=== PATIENT | female | born 1995 ===

== ENCOUNTER 2017-04-04 16:49 | Emergency (ER) | payer MEDICAID ==
[2017-04-04 17:16] VITALS: BP 127/86; PULSE 122; RESP 16; O2SAT 99
[2017-04-04 17:57] LABS: VENOUS BLOOD GAS PCO2 45 mmHg (40-60); VENOUS BLOOD PH 7.38 (7.32-7.43)
--- NOTE | 2017-04-04 18:05 | ED PDOC ---
HPI: General Adult Time Seen by Provider: 04/04/17 17:22 Chief Complaint (Nursing): Abdominal Pain History Per: Patient Additional Complaint(s): Pt. states last night she had an abrupt onset of suprapubic pain associated with non-bloody vomiting. States pain has been constant and reports no fever at home. Denies dysuria, hematuria, vaginal discharge, cough, congestion, sore throat, rash, diarrhea, headache, neck pain/stiffness, back pain. Last BM was today and was normal. Past Medical History Reviewed: Historical Data, Nursing Documentation, Vital Signs Vital Signs: Last Vital Signs Temp 100.9 F H 04/04/17 17:13 Pulse 122 H 04/04/17 17:13 Resp 16 04/04/17 17:13 BP 127/86 04/04/17 17:13 Pulse Ox 99 04/04/17 18:12 - Medical History Other PMH: PCOS - Surgical History Surgical History: No Surg Hx - Family History Family History: States: No Known Family Hx - Immunization History Hx Tetanus Toxoid Vaccination: No Hx Influenza Vaccination: No Hx Pneumococcal Vaccination: No - Home Medications Home Medications: Ambulatory Orders Medication Instructions Recorded Prednisone 20 mg PO BID #10 tablet 11/02/15 - Allergies Allergies/Adverse Reactions: Allergies Allergy/AdvReac Type Severity Reaction Status Date / Time No Known Allergies Allergy Verified 11/02/15 20:37 Review of Systems ROS Statement: Except As Marked, All Systems Reviewed And Found Negative Gastrointestinal: Positive for: Nausea, Vomiting Genitourinary Female: Positive for: Pelvic Pain Physical Exam - Reviewed Nursing Documentation Reviewed: Yes Vital Signs Reviewed: Yes - Physical Exam Appears: Positive for: Well, Non-toxic, No Acute Distress Head Exam: Positive for: ATRAUMATIC, NORMAL INSPECTION, NORMOCEPHALIC Skin: Positive for: Normal Color, Warm. Negative for: Rash Eye Exam: Positive for: EOMI, Normal appearance, PERRL ENT: Positive for: Normal ENT Inspection Neck: Positive for: Normal, Painless ROM Cardiovascular/Chest: Positive for: Regular Rate, Rhythm Respiratory: Positive for: CNT, Normal Breath Sounds Gastrointestinal/Abdominal: Positive for: Normal Exam, Soft. Negative for: Tenderness, Guarding, Rebound Back: Positive for: Normal Inspection. Negative for: L CVA Tenderness, R CVA Tenderness Extremity: Positive for: Normal ROM Neurologic/Psych: Positive for: Alert, Oriented - Laboratory Results Result Diagrams: 04/04/17 17:58 04/04/17 17:58 Urine POC: Negative Urine dip results: Positive for: Blood (moderate). Negative for: Leukocyte Esterase, Nitrate, Ketones, Glucose, Bilirubin, Protein - ECG O2 Sat by Pulse Oximetry: 99 - Progress ED Course And Treament: Labs ordered. Zofran 4mg IV, tylenol 975mg PO, blood culture x 2 ordered. Disposition - Clinical Impression Clinical Impression: Fever, Pelvic pain - Patient ED Disposition Is Patient to be Admitted: Transfer of Care (Signed out to Yousif CARR pending US results and final disposition.) - Disposition Disposition Time: 20:00 Condition: STABLE Forms: [employer] [facility] (Bahamian)
[2017-04-04 18:11] LABS: BASO % 0.4 % (0.0-2.0); EOS % 0.2 % (0.0-4.0); HEMATOCRIT 40.5 % (34.0-47.0); LYMPH # 0.6 K/uL (1.0-4.3); LYMPH % 5.6 % (20.0-40.0); MEAN CELL VOLUME 87.6 fl (81.0-99.0); MEAN CORPUSCULAR HEMOGLOBIN 29.2 pg (27.0-31.0); MEAN CORPUSCULAR HGB CONC 33.3 g/dL (33.0-37.0); MEAN PLATELET VOLUME 8.9 fl (7.2-11.7); MONO # 0.7 K/uL (0.0-0.8); MONO % 6.4 % (0.0-10.0); NEUT # 9.9 K/uL (1.8-7.0); NEUT % 87.4 % (50.0-75.0); NRBC % 0.1 % (0.0-0.0); PLATELET COUNT 261 K/uL (130-400); RED CELL DISTRIBUTION WIDTH 12.6 % (11.5-14.5); WHITE BLOOD COUNT 11.3 K/uL (4.8-10.8)
[2017-04-04 18:29] LABS: ALB/GLOB RATIO 1.3 (1.0-2.1); ALKALINE PHOSPHATASE 59 U/L (38-126); ALT/SGPT 33 U/L (9-52); AST/SGOT 40 U/L (14-36); BILIRUBIN,TOTAL 1.2 mg/dl (0.2-1.3); BLOOD UREA NITROGEN 21 mg/dl (7-17); CALCIUM 8.9 mg/dL (8.4-10.2); CARBON DIOXIDE 25 mmol/L (22-30); CHLORIDE 105 mmol/L (98-107); GFR AFRICAN-AMERICAN > 60; GLUCOSE,RANDOM 104 mg/dL (65-105); SODIUM 141 mmol/l (132-148); TOTAL PROTEIN 8.6 G/DL (6.3-8.2)
[2017-04-04 18:34] LABS: POTASSIUM 4.5 MMOL/L (3.6-5.0)
[2017-04-04 19:56] LABS: NEUTROPHIL 85 % (42-75); REACTIVE LYMPHOCYTES 2 % (0-0); TOTAL CELLS COUNTED 100
[2017-04-04 20:59] VITALS: TEMP 99.5
--- NOTE | 2017-04-04 21:22 | ED PDOC ---
- Laboratory Results Result Diagrams: 04/04/17 17:58 04/04/17 17:58 Urine POC: Negative - ECG O2 Sat by Pulse Oximetry: 99 - Progress ED Course And Treament: Case endorsed to health science writer from Dipesh CARR pending u/s, labs 21:10 Patient states she does not wish to stay in ED any longer and would like to leave. Patient was advised she will need to sign out against medical advice, and risks of doing so. Patient awake, alert, oriented x3; demonstrates full competency in making medical decisions. Discussed differential diagnosis with patient including (but not limited due) UTI, pyelonephritis, colitis, diverticulitis Rx Cipro provided. Advised follow up PMD tomorrow. Return to ED for worsening/concerning symptoms. Disposition - Clinical Impression Clinical Impression: Fever, Left against medical advice, Abdominal pain in female - POA Present On Arrival: None - Disposition Disposition: AGAINST MEDICAL ADVICE Disposition Time: 21:15 Condition: STABLE Additional Instructions: You are leaving against medical advice and without a final diagnosis. Follow up with your primary care physician as soon as possible. Return to ED for worsening/concerning symptoms. Prescriptions: Ciprofloxacin HCl [Cipro] 500 mg PO BID #13 tab Instructions: Against Medical Advice (ED) Forms: [employer] (Kazakh) Against Medical Advice - AMA Patient Left Against Medical Advice: The patient declines admission to the hospital and wishes to leave the Emergency Department. This action is against my medical advice. This decision was made with informed refusal. The patient was told that admission to the hospital is necessary. Explanation of the reasons why were discussed. The risks of leaving were explained to the patient and include, but are not limited to, worsening of known or currently unknown conditions, permanent disability and from undiagnosed or untreated conditions. The patient has the capacity to make this informed decision and understands my explanation of the current medical problem and risks of leaving. The patient voluntarily accepts these risks and signed an AMA form documenting our conversation. The patient was given the opportunity to ask questions and reconsider. The patient was encouraged to return to the Emergency Department at any time for further care.
--- NOTE | 2017-04-04 21:58 | US ---
EXAM: US Pelvis Complete, Transabdominal EXAM DATE/TIME: 04/04/2017 6:02 PM CLINICAL HISTORY: 21 years old, female; Pain; Pelvic pain; Additional info: Pelvic pain, fever TECHNIQUE: Real-time transabdominal pelvic ultrasound (complete) with image documentation. COMPARISON: There are no prior studies for comparison. FINDINGS: Uterus/cervix: Uterus is anteflexed. The uterus measures approximately 8 x 3 x 5 cm. endometrium measures approximately 4 mm in width. Ovaries: Right ovary measures approximately 4 x 2 x 2 cm. Left ovary measures approximately 4 x 2 x 3 cm. There are multiple small follicles in both ovaries. There is intraovarian blood flow. Adnexa There are no adnexal masses. Free fluid: There is no free fluid. Bladder: Urinary bladder is partially distended. IMPRESSION: Normal transabdominal pelvic ultrasound
== END 2017-04-04 21:25 | disposition left against medical advice (07) ==
LOC: H.ER 16:49
DX: R10.9 Unspecified abdominal pain (principal); E28.2 Polycystic ovarian syndrome; R50.9 Fever, unspecified

== ENCOUNTER 2017-04-05 14:19 | Emergency (ER) | payer MEDICAID ==
[2017-04-05 14:28] VITALS: BP 118/73; PULSE 64; RESP 16; TEMP 97.9; O2SAT 96
--- NOTE | 2017-04-05 15:07 | ED PDOC ---
HPI: Abdomen Time Seen by Provider: 04/05/17 14:51 Chief Complaint (Nursing): Abdominal Pain History Per: Patient Onset/Duration Of Symptoms: Days (2) Current Symptoms Are (Timing): Intermittent Episodes Severity: Mild Pain Scale Rating Of: 2 Location Of Pain/Discomfort: LLQ Quality Of Discomfort: Sharp Associated Symptoms: Nausea, Vomiting Exacerbating Factors: None Alleviating Factors: None Additional Complaint(s): Seen yesterday with LLQ abd pain assoc with vomiting. Left AMA prior to completing w/u including CT abd/pelvis. Return today still with pain, requesting CT Past Medical History Vital Signs: Last Vital Signs Temp 97.9 F 04/05/17 14:24 Pulse 64 04/05/17 14:24 Resp 16 04/05/17 14:24 BP 118/73 04/05/17 14:24 Pulse Ox 96 04/05/17 15:07 - Medical History PMH: No Chronic Diseases - Family History Family History: States: Unknown Family Hx - Immunization History Hx Tetanus Toxoid Vaccination: No Hx Influenza Vaccination: No Hx Pneumococcal Vaccination: No - Home Medications Home Medications: Ambulatory Orders Medication Instructions Recorded Prednisone 20 mg PO BID #10 tablet 11/02/15 Ciprofloxacin HCl [Cipro] 500 mg PO BID #13 tab 04/04/17 - Allergies Allergies/Adverse Reactions: Allergies Allergy/AdvReac Type Severity Reaction Status Date / Time No Known Allergies Allergy Verified 04/05/17 14:24 Review of Systems Constitutional: Positive for: Fever Gastrointestinal: Positive for: Vomiting, Abdominal Pain Physical Exam - Physical Exam Appears: Positive for: Non-toxic, No Acute Distress Gastrointestinal/Abdominal: Positive for: Bowel Sounds, Soft, Tenderness (LLQ) Back: Negative for: L CVA Tenderness, R CVA Tenderness Extremity: Positive for: Normal ROM Neurologic/Psych: Positive for: Alert, Oriented - ECG O2 Sat by Pulse Oximetry: 96 Disposition - Clinical Impression Clinical Impression: Abdominal pain - Patient ED Disposition Is Patient to be Admitted: Transfer of Care - Disposition Disposition: Transfer of Care Disposition Time: 17:00 Condition: FAIR Forms: [employer] [facility] (Dominican) Patient Signed Over To: Song Delvalle III
[2017-04-05] MEDS ORDERED: Iohexol 300 100 ML IJ ONE (16:44)
[2017-04-05] MEDS ORDERED: Sodium Chloride 0.9% 50 ML IV ONE (16:44)
--- NOTE | 2017-04-05 17:50 | CT ---
PROCEDURE: CT Abdomen and Pelvis with contrast HISTORY: LLQ pain COMPARISON: None available. TECHNIQUE: Contrast dose: 90 mL Omnipaque 300 Radiation dose: Total exam DLP = 541.33 mGy-cm. This CT exam was performed using one or more of the following dose reduction techniques: Automated exposure control, adjustment of the mA and/or kV according to patient size, and/or use of iterative reconstruction technique. FINDINGS: LOWER THORAX: No visible consolidation, pleural effusion, or pneumothorax. LIVER: Unremarkable. GALLBLADDER AND BILE DUCTS: Unremarkable. PANCREAS: Unremarkable. SPLEEN: Unremarkable. ADRENALS: Unremarkable. KIDNEYS AND URETERS: The kidneys enhance symmetrically. No hydronephrosis or obstructing calculus identified. VASCULATURE: No aortic aneurysm. BOWEL: Stomach is nondistended. Lack of oral contrast limits evaluation for bowel pathology. Bowel loops appear within normal limits of caliber without evidence of obstruction. Small bowel wall thickening may be seen in setting of enteritis. APPENDIX: The appendix appears within normal limits of caliber. No secondary signs of acute appendicitis. PERITONEUM: No significant free fluid. No definite free air. LYMPH NODES: No bulky adenopathy identified. BLADDER: Unremarkable. REPRODUCTIVE: Uterus is present. BONES: No acute osseous abnormality is detected. OTHER FINDINGS: None. IMPRESSION: Small bowel wall thickening may be seen in the setting of enteritis.
--- NOTE | 2017-04-05 18:06 | ED PDOC ---
- ECG O2 Sat by Pulse Oximetry: 96 (RA) Pulse Ox Interpretation: Normal Medical Decision Making Medical Decision Makin:00 Patient signed over to me from Dr. Wiggins pending CT result Radiology report reviewed. Patient re-evaluated and feels much better. 18:00 Patient will be discharged with an analgesic and antiemetic. Instructed to follow up with PCP. Clinical impression: Enteritis Scribe Attestation: Documented by Josefa Kinney, acting as a scribe for Song Delvalle DO. Provider Scribe Attestation: All medical record entries made by the Scribe were at my direction and personally dictated by me. I have reviewed the chart and agree that the record accurately reflects my personal performance of the history, physical exam, medical decision making, and the department course for this patient. I have also personally directed, reviewed, and agree with the discharge instructions and disposition. Disposition Counseled Patient/Family Regarding: Diagnosis, Need For Followup, Rx Given - Clinical Impression Clinical Impression: Abdominal pain, Enteritis - POA Present On Arrival: None - Disposition Referrals: Song Maria MD, PhD [Staff Provider] - Disposition: Routine/Home Disposition Time: 18:00 Condition: FAIR Additional Instructions: Followup with your doctor for further testing. Return to ER for any new or worsening symptoms. Prescriptions: Ondansetron [Zofran] 4 mg PO Q6H PRN #10 tab PRN Reason: Nausea/Vomiting traMADol [Ultram] 50 mg PO TID PRN #12 tab PRN Reason: Pain, Moderate (4-7) Instructions: Acute Abdominal Pain (ED), Enteritis (ED) Forms: [employer] (Bhutanese)
== END 2017-04-05 18:18 | disposition home or self-care (01) ==
LOC: H.ER 14:19
DX: K52.9 Noninfective gastroenteritis and colitis, unspecified (principal); R10.32 Left lower quadrant pain
CPT/HCPCS: 74177; 99282; Q9967